=== PATIENT | male | born 1985 | race Caucasian/White ===

== ENCOUNTER 2021-11-21 15:37 | Emergency (ER) | payer OTHER, SELFPAY ==
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
[2021-11-21 15:38] VITALS: BP 150/94; PULSE 65; RESP 18; TEMP 36.6; O2SAT 100
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
[2021-11-21 18:07] VITALS: BP 153/103; PULSE 67; RESP 16; O2SAT 98
== END 2021-11-21 18:08 | disposition home or self-care (01) ==
LOC: ANHED 17:44
PROVIDERS: Emergency Provider Nurse Practitioner Family
DX: S00.12XA Contusion of left eyelid and periocular area, initial encounter (principal); S00.01XA Abrasion of scalp, initial encounter; Y04.2XXA Assault by strike against or bumped into by another person, initial encounter
CPT/HCPCS: 70450; 70486; 72125; 99284

== ENCOUNTER 2022-10-09 13:14 | Emergency (ER) | payer OTHER, SELFPAY ==
--- NOTE | 2022-10-09 13:20 | ED.URI ---
HPI - URI/Sore Throat General Chief Complaint: Upper Respiratory Infection Stated Complaint: Cough,Body Aches,Headache Source: patient Mode of arrival: ambulatory Limitations: no limitations History of Present Illness HPI Narrative: 37-year-old male presented for complaint of cough, body aches, and intermittent sweating/chills for almost 1 week. Cough is worse at night, nonproductive. Denies shortness of breath, wheezing, nausea, vomiting or diarrhea. Endorses son has a cough as well. Taking DayQuil for symptoms. Related Data Allergies Allergy/AdvReac Type Severity Reaction Status Date / Time No Known Allergies Allergy Verified 10/09/22 13:16 Review of Systems Review of Systems: CONSTITUTIONAL: Denies body aches, fever, chills, or sweats. EYES: Denies visual changes, redness, or discharge. ENT: Denies rhinorrhea, congestion, sore throat, or otalgia. CARDIOVASCULAR: Denies chest pain, palpitations, or edema. RESPIRATORY: Reports cough, denies sob, wheezing. GASTROINTESTINAL: Denies abdominal pain, nausea, vomiting, or diarrhea. GENITOURINARY: Denies dysuria or hematuria. SKIN: Denies rash, itching, or wounds. MUSCULOSKELETAL: Denies back pain, joint pain, or myalgia. NEUROLOGIC: Denies headache, numbness, tingling, or weakness. All systems reviewed & are unremarkable except as noted in HPI and below PMFSH Past Medical History Medical History Encounter to establish care Fracture Left elbow pain Social History Social History Smoking status: Never smoker Alcohol intake: current Substance use: never Lack of Transportation: No Lack of Food: Never True Current Housing: I Have Housing Concerned About Future Housing: No Difficulty Paying Gas/Electric Bills: No Difficulty Paying for Meds: No Currently Unemployed: No Education: Bachelor's Degree Difficulty w/ Childcare or Family Care: No Living arrangements: with family Occupation/Education: occupation Gender identity (if verbalized by the patient): Male Comments At time of signature, I have reviewed and agree with nursing past medical, surgical, social and family history unless otherwise noted. Please see nursing chart for further information. There is no relevant family history pertinent to the presenting complaint Exam Narrative: GENERAL: Well-appearing, in no acute distress. EYES: EOMI. No redness or drainage. Conjunctivae normal. ENT: Mucous membranes pink and moist. No rhinorrhea. TMs normal bilaterally. Throat normal. Uvula midline. NECK: Normal AROM. Supple. CHEST: No respiratory distress. lungs clear to all dinero. HEART: Regular rate and rhythm. No murmur appreciated. ABDOMEN: Soft, nontender, nondistended, normal active bowel sounds. EXTREMITIES: Normal range of motion. No edema. SKIN: Warm, sweating. no rash. Capillary refill normal. Normal skin turgor. NEURO: Alert and oriented x3. Gait steady. Course Course Emergency Course: Patient is aware of diagnosis, understands and agrees to treatment plan. Anticipatory guidance given. Patient agrees to follow-up as directed and is aware of reasons to seek care at the emergency department. Portions of this record may have been created with voice recognition software Level of Care: Express Care Visit Vital Signs Vital signs: Vital Signs Temperature 98.1 F 10/09/22 13:22 Pulse Rate 93 10/09/22 13:22 Respiratory Rate 16 10/09/22 13:22 Blood Pressure 148/78 H 10/09/22 13:22 Pulse Oximetry 97 10/09/22 13:22 Oxygen Delivery Room Air 10/09/22 13:22 Temperature 98.1 F 10/09/22 13:22 Pulse Rate 93 10/09/22 13:22 Respiratory Rate 16 10/09/22 13:22 Blood Pressure 148/78 H 10/09/22 13:22 Pulse Oximetry 97 10/09/22 13:22 Oxygen Delivery Room Air 10/09/22 13:22 MDM - URI/Sore Throat MDM Narrativ
[2022-10-09 13:22] VITALS: BP 148/78; PULSE 93; RESP 16; TEMP 36.7; O2SAT 97
== END 2022-10-09 13:35 | disposition home or self-care (01) ==
PROVIDERS: Emergency Provider Nurse Practitioner Family; PCP Family Medicine
DX: B34.9 Viral infection, unspecified (principal)
CPT/HCPCS: 99213; G0463